=== PATIENT | male | born 1945 | race Caucasian/White ===

== ENCOUNTER 2023-06-22 10:01 | Emergency (ER) | payer MEDICARE, OTHER, SELFPAY ==
[2023-06-22 10:06] VITALS: BP 142/74; PULSE 97; RESP 16; TEMP 36.7; O2SAT 97
--- NOTE | 2023-06-22 12:30 | ED_ITS ---
HPI - Back Pain/Injury General Time Seen by Provider: 12:30 Date Seen: 06/22/23 Chief Complaint: Back Injury/Pain Stated Complaint: Lower back pain Time Seen by Provider: 06/22/23 12:30 Source: patient and RN notes reviewed Mode of arrival: ambulatory Limitations: no limitations History of Present Illness HPI Narrative: Patient is a 78-year-old male coming in with increasing right low back pain. He started with low back pain weeks ago, did see Dr. Blair at [facility] and was initially prescribed a Medrol Dosepak. He states he was feeling better but then was underneath his race car working on it. He pulled his back doing that in by the next day was having significant increase in symptoms. He did see her again, did get adjusted and felt better. He again went back to the race car and aggravated his back. He did get a Medrol Dosepak again which he completed about 10 days ago. He admits that he tweaked his back working on the race car, now he is getting pain that goes into the right buttock and just down into the right posterior thigh. He is sleeping fine. He is taking Advil about twice a day, nothing else. He is scheduled to get an MRI in his back on the 18th of this month. He could not get into clinic today. As noted he is sleeping just fine but does complain of pain with position changes. He notes no pain in the hip area or in the groin area with ambulating. Pain seems to be coming from his low back and is starting to go into the right buttock. Is able to ambulate, no numbness or tingling, no bowel or bladder symptoms. Denies any history of cancer, nonsmoker, no fevers or chills or night sweats. MD elicited complaint: back pain Related Data Home Medications Medication Instructions Recorded Confirmed ibuprofen 600 mg tablet 600 mg PO Q4H PRN 04/09/23 04/09/23 losartan 25 mg tablet 25 mg PO DAILY 04/09/23 04/09/23 pantoprazole 40 mg tablet,delayed 40 mg PO DAILY 04/09/23 04/09/23 release triamcinolone acetonide 0.1 % 1 applic topical DAILY 04/09/23 04/09/23 topical cream Previous Rx's Medication Instructions Recorded cyclobenzaprine 10 mg tablet 10 mg PO TID PRN muscle spasm #15 06/22/23 tabs prednisone 20 mg tablet 20 mg PO BID #10 tabs 06/22/23 Allergies Allergy/AdvReac Type Severity Reaction Status Date / Time No Known Drug Allergies Allergy Verified 04/09/23 09:00 Review of Systems Narrative: [facility] Social History Smoking Status: Unknown if ever smoked Do you use any of these nicotine containing products: None Second hand tobacco smoke exposure: No How often do you have a drink containing alcohol: never AUDIT-C Alcohol total score: 0 Non-prescribed substance use: denies use service: Yes Exam Const: Vital Signs, click to edit/add: Vital Signs - 24 hr 06/22/23 10:06 Temperature 98.1 F Pulse Rate [Pulse Oximeter] 97 Respiratory Rate 16 Blood Pressure [Ri ght Upper Arm] 142/74 H Pulse Oximetry 97 Oxygen Delivery Me thod Room Air Documenting provider has reviewed patient's vital signs: yes Common normals: no apparent distress, average body habitus, oriented x3, no limitations, healthy appearing, alert and well nourished General appearance: cooperative, comfortable, well kempt and well developed Back & Pelvis: Other: No midline tenderness of his spine, no significant paraspinous tenderness. Does have pain on palpation of the right buttock in the sciatic notch area. No palpable mass. Extremity: Common normals: normal to inspection, full ROM, no calf tenderness and no pedal edema Neuro: Common normals: oriented x3 Sensorium/orientation: alert Other: Ambulatory into the ED of his own accord. Has normal light touch sensation of his lower extremities, symmetric warmth and vascularity. Strength is 5/5 and symmetric throughout both lower extremities. Could not get DTRs on either side. Has negative straight leg raising. Psych: Appearance: well kempt Course Course Hospital Course: Discussed management with patient. He declined physical therapy referral which I did offer. He states that physical therapy typically does not help him. We discussed indications for emergent MRI and he is not exhibiting any of these at this time. Would recommend limiting his activities so as to not exacerbate this. Can continue with ibuprofen and Tylenol should be added. Will give him a course of prednisone and small supply of muscle relaxants. Did go over the risks and benefits of muscle relaxants. I do not feel that basic imaging is indicated at this time, can follow up with his primary care provider and proceed with MRI as ordered. Vital Signs Vital signs: Initial Vital Signs Temperature 98.1 F 06/22/23 10:06 Temperature Source Temporal Artery Scan 06/22/23 10:06 Pulse Rate 97 06/22/23 10:06 Pulse Rhythm Regular 06/22/23 10:06 Respiratory Rate 16 06/22/23 10:06 Blood Pressure 142/74 H 06/22/23 10:06 Blood Pressure Mean 96 06/22/23 10:06 Blood Pressure Position Sitting 06/22/23 10:06 Pulse Oximetry 97 06/22/23 10:06 Oxygen Delivery Method Room Air 06/22/23 10:06 Vital Signs Temperature 98.1 F 06/22/23 10:06 Pulse Rate 97 06/22/23 10:06 Respiratory Rate 16 06/22/23 10:06 Blood Pressure 142/74 H 06/22/23 10:06 Pulse Oximetry 97 06/22/23 10:06 Oxygen Delivery Method Room Air 06/22/23 10:06 Temperature 98.1 F 06/22/23 10:06 Pulse Rate 97 06/22/23 10:06 Respiratory Rate 16 06/22/23 10:06 Blood Pressure 142/74 H 06/22/23 10:06 Pulse Oximetry 97 06/22/23 10:06 Oxygen Delivery Method Room Air 06/22/23 10:06 Critical Care Time Critical Care Time Critical Care Time: No Discharge Plan Discharge Clinical Impression: Acute lumbar back pain Patient Disposition: Home, Self-Care Condition: Stable Instructions: Acute Low Back Pain (ED), Lumbar Radiculopathy (ED) Additional Instructions: Take prednisone as prescribed, take with food to protect her stomach. Can continue with [id number] ibuprofen and/or Tylenol as needed for pain control. Do recommend taking Tylenol 1000 mg 3 times a day baseline for pain. Will add in a muscle relaxant but need to be careful as these can be sedating, cannot drive if you use them. Follow-up in clinic if ongoing symptoms. Review handout, seek emergent re-evaluation if you develop any of the listed concerning signs or symptoms. Otherwise proceed with MRI as scheduled outpatient. Minimize any activities that might exacerbate your back. Activity Level: Activity as Tolerated Prescriptions: New prednisone 20 mg tablet 20 mg PO BID Qty: 10 0RF cyclobenzaprine 10 mg tablet 10 mg PO TID PRN (Reason: muscle spasm) Qty: 15 0RF No Action triamcinolone acetonide 0.1 % cream 1 applic topical DAILY pantoprazole 40 mg tablet,delayed release (DR/EC) 40 mg PO DAILY losartan 25 mg tablet 25 mg PO DAILY ibuprofen 600 mg tablet 600 mg PO Q4H PRN Follow Up/Referrals: Mar Blair DO [Primary Care Provider] - Stand Alone [facility] Info Inst[facility]
== END 2023-06-22 13:10 | disposition home or self-care (01) ==
PROVIDERS: Emergency Provider Family Medicine; PCP Family Medicine
DX: M54.50 Low back pain, unspecified (principal)
CPT/HCPCS: 99283

== ENCOUNTER 2023-10-13 13:00 | Outpatient (RCR) | payer MEDICARE, OTHER, SELFPAY | END 2023-12-03 11:49 | disposition home or self-care (01) | PROVIDERS: PCP Family Medicine; Visit Provider Family Medicine | DX: M54.17 Radiculopathy, lumbosacral region (principal); M51.26 Other intervertebral disc displacement, lumbar region; M46.96 Unspecified inflammatory spondylopathy, lumbar region; M25.69 Stiffness of other specified joint, not elsewhere classified; M54.9 Dorsalgia, unspecified; Z51.89 Encounter for other specified aftercare | CPT/HCPCS: 97110; 97162 ==

== ENCOUNTER 2024-03-10 09:00 | Outpatient (RCR) | payer MEDICARE, OTHER, SELFPAY | END 2024-04-13 15:05 | disposition home or self-care (01) | PROVIDERS: PCP Family Medicine; Visit Provider Orthopaedic Surgery Orthopaedic Surgery of the Spine | DX: Z98.890 Other specified postprocedural states (principal); M54.17 Radiculopathy, lumbosacral region; Z51.89 Encounter for other specified aftercare | CPT/HCPCS: 97110; 97162 ==

== ENCOUNTER 2024-07-12 13:31 | Outpatient (CLI) | payer MEDICARE, OTHER, SELFPAY | END 2024-07-12 13:32 | disposition home or self-care (01) | PROVIDERS: PCP Family Medicine; Visit Provider Family Medicine | DX: M17.11 Unilateral primary osteoarthritis, right knee (principal); M25.561 Pain in right knee | CPT/HCPCS: 64454 ==

== ENCOUNTER 2024-08-02 12:58 | Outpatient (CLI) | payer MEDICARE, OTHER, SELFPAY | END 2024-08-02 12:59 | disposition home or self-care (01) | LOC: INJ CL 13:00 | PROVIDERS: PCP Family Medicine; Visit Provider Family Medicine | DX: M17.11 Unilateral primary osteoarthritis, right knee (principal); M25.561 Pain in right knee; G89.29 Other chronic pain | CPT/HCPCS: 64624; J2250; J2405; J3010 ==